=== PATIENT | male | born 1970 | race Hispanic/Latino ===

== ENCOUNTER 2024-03-04 19:43 | Emergency (ER) | payer OTHER ==
[2024-03-04] MEDS ORDERED: Lorazepam 2 MG/ML VIAL ONE (20:51)
[2024-03-04] MEDS ORDERED: Meclizine HCl 25 MG TAB ONE (20:52)
[2024-03-04 20:57] LABS: #Basophils 0.05 10x3/uL (0.0-0.2); #Eosinophils 0.11 10x3/uL (0.0-0.5); #Monocytes 0.63 10x3/uL (0.0-1.1); #Neutrophils 8.59 10x3/uL (1.5-8.4); %Basophils 0.5 % (0.0-2.0); %Lymphocytes 14.8 % (18.0-47.0); %Monocytes 5.7 % (0.0-10.0); %Neutrophils 77.6 % (40.0-75.0); Mean Corpuscular HGB CONC 34.1 g/dL (32.0-36.0); Mean Corpuscular Hemoglobin 30.7 pg (27.0-33.0); Mean Platelet Volume 9.8 fL (7.4-10.4); Platelet Count 235 10x3/uL (150-450); RBC Distribution Width 12.3 % (11.5-14.5); Red Blood Cell (RBC) Count 4.89 10x6/uL (4.32-5.72); White Blood Cell (WBC) Count 11.1 10x3/uL (3.5-10.5)
[2024-03-04 21:07] LABS: Anion Gap 16 mmol/L (10-20); BUN (Urea Nitrogen) 25 mg/dL (8.4-25.7); Calc. Creatinine Clearance 0 mL/min (70-130); Carbon Dioxide 23 mmol/L (22-29); Chloride 104 mmol/L (98-107); Estimated GFR 84; Glucose 111 mg/dL (70-105); Potassium 4.9 mmol/L (3.5-5.1); Sodium 138 mmol/L (136-145)
[2024-03-05] MEDS ORDERED: Dexamethasone 10 MG/ML VIAL ONE (00:10)
== END 2024-03-04 23:56 | disposition home or self-care (01) ==
LOC: CSHERS 19:43
DX: H81.10 Benign paroxysmal vertigo, unspecified ear (principal); R19.7 Diarrhea, unspecified
CPT/HCPCS: 36415; 70450; 80048; 85025; 93005; 93010; 96361; 96374; 96375; J2060